=== PATIENT | male | born 1955 | race Caucasian/White ===

== ENCOUNTER 2024-12-07 10:18 | Emergency (ER) | payer MEDICARE ==
[2024-12-07 10:37] VITALS: TEMP 97.9
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
[2024-12-07 10:52] LABS: BASOPHIL % 0.7 % (0.2-1.2); Basophil (Absolute #) 0.05 x10^3/uL (0.01-0.08); Eosinophil (Absolute #) 0.42 x10^3/uL (0.04-0.54); Hematocrit 47.8 % (40.1-51.0); Hemoglobin 15.5 g/dL (13.7-17.5); IMMATURE GRAN # 0.05 x10^3u/L (0.001-0.031); IMMATURE GRAN % 0.7 % (0.001-0.429); Lymphocyte (Absolute #) 1.30 x10^3/uL (1.32-3.57); Mean Corpuscular Hemoglobin 29.5 pg (25.7-32.2); Mean Corpuscular Hgb Concent. 32.4 g/dL (32.3-36.5); Monocyte (Absolute #) 0.62 x10^3/uL (0.30-0.82); NUCLEATED RBC # 0.00 x10^3u/L (0.00-0.012); NUCLEATED RBC % 0.0 % (0.00-0.2); Platelet Count 185 x10^3/uL (163-337); Red Blood Count 5.26 x10^6/uL (4.63-6.08); White Blood Count 7.6 x10^3/uL (4.23-9.07)
[2024-12-07 11:06] LABS: INR 1.02 (0.8-3.0); PROTIME 11.1 SECONDS (9.4-12.5)
[2024-12-07 11:09] LABS: Calcium 9.3 mg/dL (8.4-10.2); Carbon Dioxide 23.0 mmol/L (22-30); Creatinine 1 1.14 mg/dL (0.66-1.25); EST GLOMERULAR FILTRATION RATE 69.6 ML/MIN; Glucose 137.0 mg/dL (74-106); Potassium 4.1 mmol/L (3.5-5.1); SGOT/AST 20.0 U/L (17-59); SGPT/ALT 14.0 U/L (0-50); Total Protein 6.7 g/dL (6.3-8.2)
--- NOTE | 2024-12-07 12:56 | XRAY ---
Indication: Syncope. Multiple contiguous axial images obtained through the head without contrast. Comparison: None Normal appearing brain parenchyma, ventricles, and bony calvarium for patient's age. Moderate right and mild left ethmoid sinus mucosal thickening. Mastoid air cells are clear. Impression: Paranasal sinus disease. Otherwise normal CT head without contrast exam.
--- NOTE | 2024-12-07 13:02 | XRAY ---
Indication: Cough. Comparison: None Portable chest demonstrates cardiomegaly and pulmonary edema without consolidation/large effusion. Bony thorax intact with osteopenia and mild degenerative changes.
[2024-12-07 13:36] LABS: Glucose, Urine Negative (Negative); Protein,Urine Dip Negative (Negative); RBC 0-2 /HPF (0-5); WBC 0-2 /HPF (0-5)
[2024-12-07 13:50] LABS: NT PRO BNPII 267 pg/mL (<300); TROPONIN < 0.012 ng/mL (0.000-0.033)
[2024-12-07 13:51] VITALS: O2SAT 98
[2024-12-07] MEDS ORDERED: Lasix 40 MG/4 ML ONE (14:02)
[2024-12-07] MEDS: Lasix 40 MG/4 ML IV ONE (14:03)
[2024-12-07 14:13] VITALS: BP 117/66; PULSE 61; RESP 17
== END 2024-12-07 14:48 | disposition home or self-care (01) ==
LOC: ED 10:18
DX: R55 Syncope and collapse (principal); R07.9 Chest pain, unspecified; I11.0 Hypertensive heart disease with heart failure; I50.9 Heart failure, unspecified; E11.9 Type 2 diabetes mellitus without complications; Z79.891 Long term (current) use of opiate analgesic; Z79.4 Long term (current) use of insulin; Z79.84 Long term (current) use of oral hypoglycemic drugs; Z79.899 Other long term (current) drug therapy